=== PATIENT | female | born 1980 | race Caucasian/White ===

== ENCOUNTER 2018-01-07 08:16 | Emergency (ER) | payer OTHER ==
[~2018-01-07] VITALS: Wt 70.3 kg
[2018-01-07 08:30] VITALS: BP 132/72
[2018-01-07] MEDS ORDERED: NORCO 5-325 TA1 EACH PO (09:49)
[2018-01-07] MEDS ORDERED: NAPROSYN500 MG PO (09:49)
[2018-01-07] MEDS ORDERED: PERCOCET 5-3251 EACH PO (10:06)
== END 2018-01-07 10:27 | disposition home or self-care (01) ==
LOC: ED 08:16
DX: S42.91XA Fracture of right shoulder girdle, part unspecified, initial encounter for closed fracture (principal); S22.31XA Fracture of one rib, right side, initial encounter for closed fracture; Z88.2 Allergy status to sulfonamides; W00.0XXA Fall on same level due to ice and snow, initial encounter; Y93.89 Activity, other specified; Y92.89 Other specified places as the place of occurrence of the external cause; Y99.8 Other external cause status